=== PATIENT | male | born 1955 | race Hispanic/Latino ===

== ENCOUNTER 2024-08-09 05:49 | Day surgery (SDC) | payer OTHER ==
[~2024-08-09] VITALS: Ht 160 cm; Wt 73.9 kg
[2024-08-09] VITALS (11 sets, daily range): BP systolic 95–117; BP diastolic 52–64; PULSE 51–69; RESP 15–18; TEMP 96.9–97.5
[~2024-08-09 05:49] MED LIST: INSU100V37 SQ; METF-446 PO; METO25TA6 PO; OMEP20CA12 PO; ONDA-245 PO; ROSU20TA98 PO; TERA1CAP4 PO
[2024-08-09] MEDS: 0.9%NACL 1000ML 1,000 ML IV ONE (08:36)
[2024-08-09] MEDS ORDERED: proPOFol 10 MG/ML 20ML VIAL IV ONE (09:04)
[2024-08-09] MEDS ORDERED: LIDOCAINE PF 100MG/5ML (2%) SYRINGE 5ML ONE (09:05)
--- NOTE | 2024-08-09 10:10 | NUR ---
Full and complete Discharge Instructions given to Patient and Family both verbally and in writing.. All questions answered.Voiced understanding to GI procedure precautions and Follow Up. PIV removed with catheter tip intact. Denies c/o pain or discomfort. Ambulated to Bathroom where voided moderate amount. D/C'd W/C to POV with Family to Home.
== END 2024-08-09 10:10 | disposition home or self-care (01) ==
LOC: ENDO 05:49 → DAH 05:49 → ENDO 10:10
PROVIDERS: ATTEND Surgery
DX: C19 Malignant neoplasm of rectosigmoid junction (principal); R93.3 Abnormal findings on diagnostic imaging of other parts of digestive tract; I10 Essential (primary) hypertension; M19.90 Unspecified osteoarthritis, unspecified site; E11.9 Type 2 diabetes mellitus without complications; E78.00 Pure hypercholesterolemia, unspecified; Z98.0 Intestinal bypass and anastomosis status; Z79.84 Long term (current) use of oral hypoglycemic drugs; Z79.899 Other long term (current) drug therapy
CPT/HCPCS: 45330; J7030 ×2; J2003; J2704; A4620; A4215; A4223; A7002; A4222; A4221; A4663; A4606; J3490

== ENCOUNTER → 2025-01-08 | Outpatient (CLI) | payer OTHER ==
[~2025-01-08] MED LIST changes: +LATA2.5D14 OU; -ONDA-245 PO; +TERA1CAP PO; -TERA1CAP4 PO
[2025-01-08 11:51] LABS: ALBUMIN 3.5 g/dL (3.5-5.0); BILIRUBIN,TOTAL 0.2 mg/dL (0.2-1.0); CREATININE 1.2 mg/dL (0.5-1.3); POTASSIUM 4.7 mmol/L (3.5-5.1); TOTAL PROTEIN, SERUM 7.2 g/dL (6.0-8.3)
== END | disposition home or self-care (01) ==
LOC: LAB 09:31
PROVIDERS: ATTEND Internal Medicine Medical Oncology
DX: C20 Malignant neoplasm of rectum (principal)
CPT/HCPCS: 36415; 80053